=== PATIENT | female | born 1955 | race Caucasian/White ===

== ENCOUNTER 2019-01-02 14:40 | Observation (INO) ==
[2019-01-02 15:27] LABS: Hemoglobin 7.4 g/dL (11.5-15.4); Nucleated Red Blood Cells 0.4 /100 WBC (0); Platelet Count 487 K/mcL (140-400)
[2019-01-02 15:28] LABS: Basophils % 0.2 %; Eosinophils # 0.6 K/mcL (0.0-0.6); Eosinophils % 4.3 %; Hematocrit 27.6 % (35.3-44.9); Immature Granulocytes % 1.2 % (0-4); Lymphocytes # 1.3 K/mcL (0.6-4.6); Lymphocytes % 9.8 %; Mean Corpuscular HGB Conc 26.8 g/dL (31.6-35.5); Mean Corpuscular Hemoglobin 23.1 pg (28.0-33.3); Mean Platelet Volume 9.2 fL (9.4-12.4); Monocytes # 0.9 K/mcL (0.0-1.3); Monocytes % 6.7 %; Neutrophils # 10.6 K/mcL (1.6-8.9); Red Blood Count 3.21 M/mcL (3.82-4.97); Red Cell Distribution Width 21.2 % (11.5-14.5); Segmented Neutrophils % 77.8 %; White Blood Count 13.6 K/mcL (4.3-11.1)
--- NOTE | 2019-01-02 15:46 | Emergency Department Note ---
Disposition Clinical Impression: Anemia Qualifiers: Anemia type: unspecified type Qualified Code(s): D64.9 - Anemia, unspecified Disposition: Admitted As Inpatient Condition: Fair Time of Disposition: 16:43 General Adult HPI - General Chief complaint: ED Recheck/Abnormal Lab/Rx Stated complaint: "low hgb" Time Seen by Provider: 01/02/19 15:04 Source: patient Limitations: no limitations Nursing Notes Reviewed: Yes Vital Signs Reviewed: Yes - History of Present Illness HPI Narrative: Female patient sent to the emergency department complaining of low hemoglobin. Does have a history of iron deficiency anemia. Is a diabetic with nonhealing wounds to the lower extremities. Did have a debridement of her left foot on Monday approximately 5 days ago. Is on home antibiotics for this. States that she has been off her iron for around 6 weeks secondary to being told she could not take that with her antibiotics. She did start him back 10 days ago however is found to be anemic over the past week. Initial hemoglobin was 7.43 drawn today at primary care doctor's was 7.2. Patient has no complaints today other than a generalized weakness. She was noted to have some crackles in her left base by the primary care physician. Patient denies any fevers or shortness of breath. Pain Scale: 0 - Related Data Home Medications Medication Instructions Recorded Confirmed Aspirin [Lo-Dose Aspirin EC] 81 mg PO HS 01/02/19 01/02/19 Atorvastatin [Lipitor] 40 mg PO DAILY 01/02/19 01/02/19 Calcitriol [Rocaltrol] 0.25 mcg PO MOWEFR 01/02/19 01/02/19 Cholecalciferol (D-3) [Vitamin D] 1,000 unit PO BID 01/02/19 01/02/19 Delafloxacin Meglumine [Baxdela] 300 mg IV Q12H 01/02/19 01/02/19 Dorzolamide/Timolol/Pf 1 drop BOTH EYES BID 01/02/19 01/02/19 [Dorzolamide-Timolol 2%-0.5%] Ferrous Sulfate [Iron] 325 mg PO BIDWM 01/02/19 01/02/19 Furosemide [Lasix] 40 mg PO DAILY 01/02/19 01/02/19 Insulin Regular U-500 [HumuLIN R 50 - 60 unit SQ HS 01/02/19 01/02/19 U-500] Insulin Regular U-500 [HumuLIN R 150 unit SQ QAM 01/02/19 01/02/19 U-500] Liraglutide [Victoza 3-William] 0.6 mg SQ DAILY 01/02/19 01/02/19 Lisinopril [Zestril] 10 mg PO DAILY 01/02/19 01/02/19 Loratadine [Claritin] 10 mg PO DAILY 01/02/19 01/02/19 Magnesium Oxide [Magnesium] 400 mg PO BID 01/02/19 01/02/19 Metoprolol [Lopressor] 25 mg PO BID 01/02/19 01/02/19 Multivitamin [Daily Multiple 1 each PO DAILY 01/02/19 01/02/19 Vitamin] Travoprost [Travatan Z] 1 drop BOTH EYES HS 01/02/19 01/02/19 Allergies Allergy/AdvReac Type Severity Reaction Status Date / Time latanoprost Allergy See Verified 01/02/19 14:46 Comments Sulfa (Sulfonamide Allergy Hives Verified 08/24/16 13:38 Antibiotics) All systems ED: reviewed and negative except as stated. Review of Systems: As Per HPI Constitutional: Denies: fever, chills Cardiovascular: Denies: chest pain, syncope Respiratory: Denies: cough, dyspnea Gastrointestinal: Denies: abdominal pain, nausea, vomiting, diarrhea Genitourinary: Denies: urgency, dysuria, frequency Musculoskeletal: Denies: back pain, neck pain Integumentary: Reports: other (Nonhealing wounds to bilateral feet.) Neurological: Reports: weakness. Denies: headache Past Medical History - Past Medical History Attestation: Yes The following information was validated with the patient. Source: patient Medical history: Reports: diabetes, glaucoma, hypertension - Social History Smoking Status: Never smoker Smokeless Tobacco Status: No Alcohol use: Reports: rarely Drug use: Reports: none Physical Exam - General Limitations: no limitations General appearance: alert, in no apparent distress - Head Head exam: atraumatic, normocephalic, normal inspection - Eye Eye exam: Present: normal appearance, PERRL, EOMI - ENT ENT exam: normal exam, normal oropharynx, mucous membranes moist - Neck Neck exam: Present: normal inspection, full ROM, trachea midline - Chest Chest inspection: Present: normal inspection, symmetric chest wall rise - Respiratory Respiratory exam: Present: normal lung sounds bilaterally. Absent: respiratory distress, accessory muscle use - Cardiovascular Cardiovascular exam: Present: regular rate, normal rhythm, normal heart sounds - Abdominal Exam Abdominal exam: Present: soft, Non-Tender. Absent: tenderness, distention, guarding, rebound, rigidity, organomegaly - Extremities Exam Extremities exam: Present: normal inspection, full ROM, other (Patient with all digits imitated on bilateral lower extremities. Multiple wounds that are open to lower feet. These are bandaged. We did take the dressings down they were noted to have vancomycin beads in the left foot. They do appear to be healing well however they are ulcerated. They do appear beefy red. No necrosis noted. No foul odor.). Absent: tenderness - Neurological Exam Neurological exam: Present: alert, oriented X3 - Psychiatric Psychiatric exam: Present: normal affect, normal mood - Skin Skin exam: Present: warm, dry, normal color. Absent: rash, cyanosis, diaphoresis Course Course Narrative: Patient is a diabetic. Does have lower extremity wounds to both feet. She appears well but does have a lower hemoglobin. I discussed this with the patient's primary care physician who is requesting admission for blood transfusion at this time. We will provide her with 1 unit at this time and have her reevaluated when she gets to the floor. Does have a history of iron deficiency anemia. Patient has no other complaints currently. She does only complain of weakness. She is nontoxic appearing. Chest x-ray was ordered secondary to when I was discussing with PCP they were concerned for possible crackles in her left lower base. I did not appreciate this however patient mentioned it as well. Chest x-ray shows no signs of pneumonia. Vital Signs Temperature 97.8 F 01/02/19 14:43 Pulse Rate 79 01/02/19 14:43 Respiratory Rate 18 01/02/19 14:43 Blood Pressure 138/69 01/02/19 14:43 O2 Sat by Pulse Oximetry 97 01/02/19 14:43 Temperature 98.5 F 01/02/19 18:55 Pulse Rate 84 01/02/19 18:55 Respiratory Rate 16 01/02/19 18:55 Blood Pressure 128/72 01/02/19 18:55 O2 Sat by Pulse Oximetry 98 01/02/19 18:55 Oxygen Delivery Oxygen Delivery Room Air Medical Decision Making - Medical Records Medical records reviewed: Yes I reviewed the patient's medical records. - Lab Data Lab results reviewed: Yes I reviewed the patient's lab results. Result diagrams: 01/02/19 15:18 01/02/19 15:18 Lab Results 01/02/19 01/02/19 01/02/19 Range/Units 15:18 15:18 15:18 WBC 13.6 H (4.3-11.1) K/mcL RBC 3.21 L (3.82-4.97) M/mcL Hgb 7.4 L (11.5-15.4) g/dL Hct 27.6 L (35.3-44.9) % MCV 86.0 (83.0-100.0) fL MCH 23.1 L (28.0-33.3) pg MCHC 26.8 L (31.6-35.5) g/dL RDW 21.2 H (11.5-14.5) % Plt Count 487 H (140-400) K/mcL MPV 9.2 L (9.4-12.4) fL Immature Gran % 1.2 (0-4) % Seg Neutrophils % 77.8 % Lymphocytes % 9.8 % Monocytes % 6.7 % Eosinophils % 4.3 % Basophils % 0.2 % Neutrophils # 10.6 H (1.6-8.9) K/mcL Lymphocytes # 1.3 (0.6-4.6) K/mcL Monocytes # 0.9 (0.0-1.3) K/mcL Eosinophils # 0.6 (0.0-0.6) K/mcL Basophils # 0.0 (0.0-0.2) K/mcL Nucleated RBCs/100 WBC 0.4 H (0) /100 WBC Platelet Estimate Increased H (Normal) Hypochromasia Present A (Not Present) Anisocytosis 2+ A (Not Present) PT (9.4-12.1) Seconds INR Sodium 140 (136-145) mEq/L Potassium 4.3 (3.5-5.1) mEq/L Chloride 104 (98-107) mEq/L Carbon Dioxide 28 (23-29) mEq/L BUN 31 H (8-23) mg/dL Creatinine 1.08 (0.60-1.20) mg/dL Est GFR ( Amer) > 60 (> 60) Est GFR (Non-Af Amer) 51 L (> 60) BUN/Creatinine Ratio 29 H (6-26) Glucose 69 L (70-105) mg/dL POC Glucose (70-99) mg/dL Calculated Osmolality 295 (280-300) Calcium 9.1 (8.6-10.3) mg/dL Iron 15 L (50-170) mcg/dL % Saturation 6 L (15-50) % Transferrin 194 L (203-362) mg/dL Blood Type A POSITIVE Antibody Screen NEGATIVE Crossmatch See Detail 01/02/19 01/02/19 Range/Units 16:46 16:54 WBC (4.3-11.1) K/mcL RBC (3.82-4.97) M/mcL Hgb (11.5-15.4) g/dL Hct (35.3-44.9) % MCV (83.0-100.0) fL MCH (28.0-33.3) pg MCHC (31.6-35.5) g/dL RDW (11.5-14.5) % Plt Count (140-400) K/mcL MPV (9.4-12.4) fL Immature Gran % (0-4) % Seg Neutrophils % % Lymphocytes % % Monocytes % % Eosinophils % % Basophils % % Neutrophils # (1.6-8.9) K/mcL Lymphocytes # (0.6-4.6) K/mcL Monocytes # (0.0-1.3) K/mcL Eosinophils # (0.0-0.6) K/mcL Basophils # (0.0-0.2) K/mcL Nucleated RBCs/100 WBC (0) /100 WBC Platelet Estimate (Normal) Hypochromasia (Not Present) Anisocytosis (Not Present) PT 13.6 H (9.4-12.1) Seconds INR 1.2 Sodium (136-145) mEq/L Potassium (3.5-5.1) mEq/L Chloride (98-107) mEq/L Carbon Dioxide (23-29) mEq/L BUN (8-23) mg/dL Creatinine (0.60-1.20) mg/dL Est GFR ( Amer) (> 60) Est GFR (Non-Af Amer) (> 60) BUN/Creatinine Ratio (6-26) Glucose (70-105) mg/dL POC Glucose 105 H (70-99) mg/dL Calculated Osmolality (280-300) Calcium (8.6-10.3) mg/dL Iron (50-170) mcg/dL % Saturation (15-50) % Transferrin (203-362) mg/dL Blood Type Antibody Screen Crossmatch - Radiology Data Radiology results reviewed: Yes I reviewed the patient's radiology results. Chest X-Ray 01/02/19 16:12 IMPRESSION: No acute cardiopulmonary process. D/ / Osmany Mcrae MD / Osmany Mcrae MD Interpreting Provider: Osmany Mcrae MD Attestation Statement - Attestation Attestation: I, Adam Loja, examined this patient and my medical decision-making was reviewed with the BALLISTICS PROFESSOR/PA/Advanced Practice Nurse/Resident Physician. I agree with the documented findings, disposition and treatment plan as described except to the extent set forth below. 63-year-old female presents emergency Department with concerns of low hemoglobin. She had outpatient laboratory testing was showed a hemoglobin of 7.4. She has a history of anemia of chronic disease and iron deficiency anemia. She had stopped taking her iron within the past month secondary to pharmacist recommendation that was interfering with her antibiotics but did recently start taking it again over the past week. She takes daily antibiotics at home for bilateral foot infections. She is status post transmetatarsal and mentation the bilateral foot. Despite hemoglobin of 7.4 she is awake alert and answering questions appropriately at this not describe significant limitation. Patient states she has regular bowel movements and has not seen significant changes or melena or hematochezia. We spoke with the primary care provider who recommended admission to the hospital for further evaluation of her anemia and bilateral foot infections.
[2019-01-02 15:55] LABS: Anisocytosis 2+ (Not Present); BUN/Creatinine Ratio 29 (6-26); Blood Urea Nitrogen 31 mg/dL (8-23); Calcium 9.1 mg/dL (8.6-10.3); Carbon Dioxide 28 mEq/L (23-29); Chloride 104 mEq/L (98-107); Glucose 69 mg/dL (70-105); Hypochromasia Present (Not Present); Osmolality,Calculated 295 (280-300); Platelet Estimate Increased (Normal); Potassium 4.3 mEq/L (3.5-5.1); Sodium 140 mEq/L (136-145); eGFR For African Americans > 60 (> 60); eGFR For Non-African Americans 51 (> 60)
[2019-01-02 17:10] LABS: % Iron Saturation 6 % (15-50); Iron 15 mcg/dL (50-170); Transferrin 194 mg/dL (203-362)
[2019-01-02] MEDS ORDERED: 0.9 % Sodium Chloride 250 ML ONE (17:15)
[2019-01-02 17:18] LABS: INR 1.2; Prothrombin Time 13.6 Seconds (9.4-12.1)
[2019-01-02] MEDS ORDERED: Ondansetron 4 MG/2 ML VIAL IVP PRN (17:22)
[2019-01-02] MEDS ORDERED: Naloxone 0.4 MG/ML INJ IVP PRN (17:22)
[2019-01-02] MEDS ORDERED: Ferumoxytol 510 MG in 0.9 % Sodium Chloride 100 ML IVPB ONE (17:32)
--- NOTE | 2019-01-02 17:32 | Internal Med History&Physical ---
Date of Encounter: 01/02/19 Time of Encounter: 17:00 Internal Medicine - H&P: HPI Chief complaint: Low hemoglobin Admitted From: Home History of present illness: Ms. Rocha is a 63 year old female with history of diabetes, morbid obesity, recent admission at [facility] for bilateral feet OM s/p transmetatarsal amputation and currently on IV Baxdela as outpatient who presented from the PCP office due to low Hb. Denies any melena, hematochezia, bright red blood per rectum, hematemesis, hematuria, or hemoptysis. She was admitted at [place] from 12/24-, she was told that her Hb was 7.9 at that time. After she was discharged, she underwent transmetatarsal amputation on 12/28 as an outpatient. She has since then placed on IV Baxdela and had bloodwork done on 12/31 with Hb 7.4. It was repeated today and was 7.2 therefore she was advised by her PCP to be admitted for anemia. Upon recheck in the ED, it was again 7.4. Denies chest pain, shortness of breath, palpitation, lightheadedness, orthopnea, or PND. No fever/chills, nausea/vomiting, abdominal pain, or dysuria. In the ED, she was afebrile and hemodynamically stable. Other than hemoglobin of 7.4, she had leukocytosis of 13.6. She was started on 1 unit PRBC transfusion and admitted for further management. Past Med Surg Social Fam HX - Past Medical History Medical history: diabetes, glaucoma, hypertension - Past Surgical History Additional surgical history: bilat toe amputation - Social History Smoking Status: Never smoker Smokeless Tobacco Status: No Alcohol use: rarely Drug use: none - Additional Family History Additional family history: No family history of GI malignancy Internal Medicine - H&P: Meds Aspirin [Lo-Dose Aspirin EC] 81 mg PO HS 01/02/19 [History] Atorvastatin [Lipitor] 40 mg PO DAILY 01/02/19 [History] Calcitriol [Rocaltrol] 0.25 mcg PO MOWEFR 01/02/19 [History] Cholecalciferol (D-3) [Vitamin D] 1,000 unit PO BID 01/02/19 [History] Delafloxacin Meglumine [Baxdela] 300 mg IV Q12H 01/02/19 [History] Dorzolamide/Timolol/Pf [Dorzolamide-Timolol 2%-0.5%] 1 drop BOTH EYES BID 01/02/19 [History] Ferrous Sulfate [Iron] 325 mg PO BIDWM 01/02/19 [History] Furosemide [Lasix] 40 mg PO DAILY 01/02/19 [History] Insulin Regular U-500 [HumuLIN R U-500] 10 - 12 unit SQ HS 01/02/19 [History] Insulin Regular U-500 [HumuLIN R U-500] 30 unit SQ QAM 01/02/19 [History] Liraglutide [Victoza 3-William] 0.6 mg SQ DAILY 01/02/19 [History] Lisinopril [Zestril] 10 mg PO DAILY 01/02/19 [History] Loratadine [Claritin] 10 mg PO DAILY 01/02/19 [History] Magnesium Oxide [Magnesium] 400 mg PO BID 01/02/19 [History] Metoprolol [Lopressor] 25 mg PO BID 01/02/19 [History] Multivitamin [Daily Multiple Vitamin] 1 each PO DAILY 01/02/19 [History] Travoprost [Travatan Z] 1 drop BOTH EYES HS 01/02/19 [History] Allergy/AdvReac Type Severity Reaction Status Date / Time latanoprost Allergy See Verified 01/02/19 14:46 Comments Sulfa (Sulfonamide Allergy Hives Verified 08/24/16 13:38 Antibiotics) All Systems PM: A 10-system review of systems was performed and is negative for pertinent findings except as documented above in the HPI. - Constitutional Vitals: Temp Pulse Resp BP Pulse Ox 98.2 F 82 20 157/72 98 01/02/19 17:17 01/02/19 17:26 01/02/19 17:26 01/02/19 17:26 01/02/19 17:26 Exam: General: Alert and oriented, not in acute distress. HEENT:EOMI, pupils equal, round and reactive. Cardiovascular:Normal S1 & S2, No JVD. Pulse regular. Lungs: clear to auscultation, no wheezes/rales Abdomen:Soft, non-tender, no rigidity. Declines VENICE Extremities: s/p bilateral transmetatarsal amputation. Dressing c/d/i Neurological:Normal cognition and motor skills. Non-focal Skin:Normal color, no rash, no lesions. Pulses:Carotid and radial pulses normal +2. Rest of the physical exam is non contributory Internal Med - H&P Results - Labs CBC & Chem 7: 01/02/19 15:18 01/02/19 15:18 Labs: Short CBC 01/02/19 Range/Units 15:18 WBC 13.6 H (4.3-11.1) K/mcL Hgb 7.4 L (11.5-15.4) g/dL Hct 27.6 L (35.3-44.9) % Plt Count 487 H (140-400) K/mcL Neutrophils # 10.6 H (1.6-8.9) K/mcL BMP 01/02/19 15:18 Sodium 140 Potassium 4.3 Chloride 104 Carbon Dioxide 28 BUN 31 H Creatinine 1.08 Glucose 69 L Calcium 9.1 - Impressions ITS Impressions Chest X-Ray 01/02/19 16:12 IMPRESSION: No acute cardiopulmonary process. D/ / Osmany Mcrae MD / Osmany Mcrae MD Interpreting Provider: Osmany Mcrae MD - Assessment and Plan (1) Anemia Current Visit: Yes Status: Acute Assessment and plan: Presented with hemoglobin of 7.2 at the outpatient lab, repeat was 7.4 in the ED it was also 7.4 on 12/31 and reportedly 7.9 at the OSH last week (pre-op) Pattern is not consistent with acute GI bleed, pt does not have any signs and symptoms of bleeding suspect anemia of chronic disease with bilateral OM of the feet requiring transmetatarsal amputation +/- post-op blood loss anemia nevertheless, 1U pRBC started in the ED. REpeat H&H after will check FOBT to ensure check iron profile -> if low, will give IV iron Qualifiers: Anemia type: unspecified type Qualified Code(s): D64.9 - Anemia, unspecified (2) Status post transmetatarsal amputation of foot Current Visit: Yes Status: Chronic Assessment and plan: Recent bilateral transmetatarsal amputation on 12/28, presumably due to OM as she is still on IV Baxdela continue home abx Qualifiers: Laterality: unspecified laterality Qualified Code(s): Z89.439 - Acquired absence of unspecified foot (3) Diabetes Current Visit: Yes Status: Chronic Assessment and plan: she absolutely refuses to use any form of insulin other than her home U500. 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
[2019-01-02] MEDS ORDERED: [UNRECOGNIZED DRUG - OTHER] IV SCH (17:45)
[2019-01-02] MEDS ORDERED: Aspirin Enteric Coated 81 MG Tablet PO SCH (21:00)
[2019-01-02] MEDS ORDERED: Dorzolamide/Timolol 1 DROP BOTH EYES SCH (21:00)
[2019-01-02] MEDS ORDERED: Travoprost [Travatan Z] 1 DROP OP SCH (21:00)
[2019-01-02] MEDS ORDERED: *HR* Insulin Regular U-500 500 UNIT/ML SQ SCH ×2 (21:00)
[2019-01-02] MEDS: Cefepime HCl 2,000 MG in Water for inj. (sterile) 20 ML 20 ML IVP SCH (21:47)
[2019-01-02] MEDS: Magnesium Oxide 400 MG TABLET PO SCH (21:50)
[2019-01-02] MEDS: Dorzolamide/Timolol OPTH 10 ML BOTTLE BOTH EYES SCH (23:16)
[2019-01-03 01:17] LABS: Hematocrit 26.4 % (35.3-44.9); Hemoglobin 7.4 g/dL (11.5-15.4)
[2019-01-03 01:34] LABS: BUN/Creatinine Ratio 29 (6-26); Blood Urea Nitrogen 29 mg/dL (8-23); Calcium 8.6 mg/dL (8.6-10.3); Carbon Dioxide 25 mEq/L (23-29); Chloride 104 mEq/L (98-107); Glucose 154 mg/dL (70-105); Osmolality,Calculated 293 (280-300); Potassium 4.8 mEq/L (3.5-5.1); Sodium 137 mEq/L (136-145); eGFR For African Americans > 60 (> 60); eGFR For Non-African Americans 56 (> 60)
[2019-01-03] MEDS ORDERED: *HR* Dextrose 50 % in Water (Syg) 50 ML SYRINGE IVP PRN (05:43)
[2019-01-03] MEDS ORDERED: D5% in Water 1,000 ML IVC PRN (05:43)
[2019-01-03] MEDS ORDERED: Dextrose Gel 15 GM/37.5 ML TUBE PO PRN ×2 (05:43)
[2019-01-03 05:50] LABS: Basophils % 0.3 %; Immature Granulocytes % 0.9 % (0-4)
[2019-01-03 05:51] LABS: Eosinophils # 0.6 K/mcL (0.0-0.6); Eosinophils % 4.9 %; Hematocrit 25.4 % (35.3-44.9); Hemoglobin 7.1 g/dL (11.5-15.4); Lymphocytes # 1.7 K/mcL (0.6-4.6); Lymphocytes % 14.2 %; Mean Corpuscular Hemoglobin 24.2 pg (28.0-33.3); Mean Corpuscular Volume 86.7 fL (83.0-100.0); Mean Platelet Volume 9.3 fL (9.4-12.4); Monocytes # 0.8 K/mcL (0.0-1.3); Neutrophils # 8.6 K/mcL (1.6-8.9); Nucleated Red Blood Cells 0.2 /100 WBC (0); Platelet Count 375 K/mcL (140-400); Red Blood Count 2.93 M/mcL (3.82-4.97); Red Cell Distribution Width 20.3 % (11.5-14.5); Segmented Neutrophils % 72.7 %; White Blood Count 11.8 K/mcL (4.3-11.1)
[2019-01-03 06:10] LABS: Anisocytosis 2+ (Not Present); Hypochromasia Present (Not Present); Macrocytosis Present (Not Present); Microcytosis Present (Not Present); Poikilocytosis 1+ (Not Present); Stomatocytes 1+ (Not Present)
[2019-01-03 06:11] LABS: Platelet Estimate Normal (Normal)
[2019-01-03] MEDS ORDERED: Furosemide 40 MG TABLET PO SCH (09:00)
[2019-01-03] MEDS ORDERED: *HR* Insulin Regular U-500 500 UNIT/ML SQ SCH (09:00)
[2019-01-03] MEDS ORDERED: Loratadine 10 MG TABLET PO SCH (09:00)
[2019-01-03] MEDS: Dorzolamide/Timolol OPTH 10 ML BOTTLE BOTH EYES SCH (09:16)
[2019-01-03] MEDS: Magnesium Oxide 400 MG TABLET PO SCH (09:19)
[2019-01-03] MEDS: Cefepime HCl 2,000 MG in Water for inj. (sterile) 20 ML 20 ML IVP SCH (09:20)
--- NOTE | 2019-01-03 10:07 | Discharge Summary ---
- NOTES TO OUTPATIENT PROVIDER Notes to Outpatient Provider: Follow-up with hematology for IV iron infusion. She may also need PRN transfusion. 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 bilateral feet OM Orders not resulted at time of discharge: Pending orders 01/02/19 15:18 Red Blood Cells [BBK] Stat Type and Screen [BBK] Stat 01/03/19 14:00 Hemoglobin and Hematocrit [HEME] Routine Date of Encounter: 01/03/19 Time of Encounter: 07:45 - Discharge Diagnosis (1) Anemia Priority: Primary Status: Acute Qualifiers: Anemia type: unspecified type Qualified Code(s): D64.9 - Anemia, unspecified (2) Status post transmetatarsal amputation of foot Priority: Secondary Status: Chronic Qualifiers: Laterality: unspecified laterality Qualified Code(s): Z89.439 - Acquired absence of unspecified foot (3) Diabetes Priority: Secondary Status: Chronic Qualifiers: Diabetes mellitus type: type 2 Diabetes mellitus roasterman insulin use: with roasterman use Diabetes mellitus complication status: with other specified complication Qualified Code(s): E11.69 - Type 2 diabetes mellitus with other specified complication; 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 Rocha is a 63 year old female with history of diabetes, morbid obesity, recent admission at [facility] for bilateral feet OM s/p transmetatarsal amputation on 12/28 and currently on IV Baxdela, who was admitted from the ED due to concern for worsening anemia. Presented with Hb 7.2 at the outpatient lab -> 7.4 in the ED. however, upon reviewing the record from [facility] on 12/24- , it appears that she had been in the range of 7s even prior to the op. Denies any signs and symptoms of GI bleed and it was confirmed on negative FOBT. Iron profile also showed Fe 15 with 6% saturation -> anemia likely due to BENITEZ as well as anemia of chronic disease. She was transfused a total of 3 units PRBC prior to discharge and was also given IV iron infusion. She will benefit from hematology follow-up as an outpatient for IV iron and PRN transfusion. Follow with crab meat processor while continuing on IV Baxdela. Discharge discussed with: patient, nurse - Time Spent with Patient Total time spent providing and/or coordinating discharge services: 26 mins - Discharge Medications Prescriptions: Continued Insulin Regular U-500 [HumuLIN R U-500] 150 unit SQ QAM Insulin Regular U-500 [HumuLIN R U-500] 50 - 60 unit SQ HS Atorvastatin [Lipitor] 40 mg PO DAILY Calcitriol [Rocaltrol] 0.25 mcg PO MOWEFR Dorzolamide/Timolol/Pf [Dorzolamide-Timolol 2%-0.5%] 1 drop BOTH EYES BID Furosemide [Lasix] 40 mg PO DAILY Liraglutide [Victoza 3-William] 0.6 mg SQ DAILY Lisinopril [Zestril] 10 mg PO DAILY Magnesium Oxide [Magnesium] 400 mg PO BID Metoprolol [Lopressor] 25 mg PO BID Travoprost [Travatan Z] 1 drop BOTH EYES HS Loratadine [Claritin] 10 mg PO DAILY Aspirin [Lo-Dose Aspirin EC] 81 mg PO HS Multivitamin [Daily Multiple Vitamin] 1 each PO DAILY Ferrous Sulfate [Iron] 325 mg PO BIDWM Cholecalciferol (D-3) [Vitamin D] 1,000 unit PO BID Delafloxacin Meglumine [Baxdela] 300 mg IV Q12H Home Medications: Aspirin [Lo-Dose Aspirin EC] 81 mg PO HS 01/02/19 [History] Atorvastatin [Lipitor] 40 mg PO DAILY 01/02/19 [History] Calcitriol [Rocaltrol] 0.25 mcg PO MOWEFR 01/02/19 [History] Cholecalciferol (D-3) [Vitamin D] 1,000 unit PO BID 01/02/19 [History] Delafloxacin Meglumine [Baxdela] 300 mg IV Q12H 01/02/19 [History] Dorzolamide/Timolol/Pf [Dorzolamide-Timolol 2%-0.5%] 1 drop BOTH EYES BID 01/02/19 [History] Ferrous Sulfate [Iron] 325 mg PO BIDWM 01/02/19 [History] Furosemide [Lasix] 40 mg PO DAILY 01/02/19 [History] Insulin Regular U-500 [HumuLIN R U-500] 50 - 60 unit SQ HS 01/02/19 [History] Insulin Regular U-500 [HumuLIN R U-500] 150 unit SQ QAM 01/02/19 [History] Liraglutide [Victoza 3-William] 0.6 mg SQ DAILY 01/02/19 [History] Lisinopril [Zestril] 10 mg PO DAILY 01/02/19 [History] Loratadine [Claritin] 10 mg PO DAILY 01/02/19 [History] Magnesium Oxide [Magnesium] 400 mg PO BID 01/02/19 [History] Metoprolol [Lopressor] 25 mg PO BID 01/02/19 [History] Multivitamin [Daily Multiple Vitamin] 1 each PO DAILY 01/02/19 [History] Travoprost [Travatan Z] 1 drop BOTH EYES HS 01/02/19 [History] Allergies/Adverse Reactions: Allergy/AdvReac Type Severity Reaction Status Date / Time latanoprost Allergy See Verified 01/02/19 14:46 Comments Sulfa (Sulfonamide Allergy Hives Verified 08/24/16 13:38 Antibiotics) Date of admission: 01/02/19 17:27 Primary care physician: Yaquelin Clark DO - Constitutional Vitals: Temp Pulse Resp BP Pulse Ox 98.6 F 77 16 136/58 93 01/03/19 07:30 01/03/19 07:30 01/03/19 07:30 01/03/19 07:30 01/03/19 07:30 Exam: General: Alert and oriented, not in acute distress. Cardiovascular:Normal S1 & S2, No JVD. Pulse regular. Lungs: clear to auscultation, no wheezes/rales Abdomen:Soft, non-tender, no rigidity. Declines VENICE Extremities: s/p bilateral transmetatarsal amputation. Dressing c/d/i Neurological:Normal cognition and motor skills. Non-focal - Patient Status Disposition: Home, Self-Care Condition: Fair Overall status at discharge: patient is progressing back to baseline - Discharge Instructions Instructions: Anemia (GEN), Diabetes Mellitus Type 2 in Adults (DC), Chronic Hypertension (DC) Follow Up With: Yaquelin Clark DO [Primary Care Provider] - Angel Horn MD [Partnered Physician] - - Diet and Activity Activity: resume usual activities as tolerated Diet: diabetic diet
[2019-01-03] MEDS ORDERED: 0.9 % Sodium Chloride 250 ML ONE ×2 (10:45→14:36)
[2019-01-03 15:11] VITALS: BP 158/80
--- NOTE | 2019-01-03 15:28 | Physician Discharge Referral ---
Home Health/Hosp Referral Info Transfer to: Home Health Provider in Charge Post Discharge: PCP - Diagnosis (1) Anemia Priority: Primary Status: Acute (2) Status post transmetatarsal amputation of foot Priority: Secondary Status: Chronic (3) Diabetes Priority: Secondary Status: Chronic (4) HTN (hypertension) Priority: Secondary Status: Chronic (5) DVT prophylaxis Priority: Secondary Status: Acute (6) Morbid obesity with BMI of 50.0-59.9, adult Priority: Secondary Status: Acute - Respiratory Orders Smoking Cessation: Smoking cessation has been advised. For more information, call the [place] Tobacco Quit Line at 1-486-ZNYP-NOW. - Services Needed Following services are medically necessary services: Nursing (For IV Baxdela) - Transfer Medications Home Medications: Aspirin [Lo-Dose Aspirin EC] 81 mg PO HS 01/02/19 [History] Atorvastatin [Lipitor] 40 mg PO DAILY 01/02/19 [History] Calcitriol [Rocaltrol] 0.25 mcg PO MOWEFR 01/02/19 [History] Cholecalciferol (D-3) [Vitamin D] 1,000 unit PO BID 01/02/19 [History] Delafloxacin Meglumine [Baxdela] 300 mg IV Q12H 01/02/19 [History] Dorzolamide/Timolol/Pf [Dorzolamide-Timolol 2%-0.5%] 1 drop BOTH EYES BID 01/02/19 [History] Ferrous Sulfate [Iron] 325 mg PO BIDWM 01/02/19 [History] Furosemide [Lasix] 40 mg PO DAILY 01/02/19 [History] Insulin Regular U-500 [HumuLIN R U-500] 50 - 60 unit SQ HS 01/02/19 [History] Insulin Regular U-500 [HumuLIN R U-500] 150 unit SQ QA 01/02/19 [History] Liraglutide [Victoza 3-William] 0.6 mg SQ DAILY 01/02/19 [History] Lisinopril [Zestril] 10 mg PO DAILY 01/02/19 [History] Loratadine [Claritin] 10 mg PO DAILY 01/02/19 [History] Magnesium Oxide [Magnesium] 400 mg PO BID 01/02/19 [History] Metoprolol [Lopressor] 25 mg PO BID 01/02/19 [History] Multivitamin [Daily Multiple Vitamin] 1 each PO DAILY 01/02/19 [History] Travoprost [Travatan Z] 1 drop BOTH EYES HS 01/02/19 [History] cloNIDine HCl [CloNIDine HCl] 0.1 mg PO HS 01/03/19 [History] Allergies/Adverse Reactions: Allergy/AdvReac Type Severity Reaction Status Date / Time latanoprost Allergy See Verified 01/02/19 14:46 Comments Sulfa (Sulfonamide Allergy Hives Verified 08/24/16 13:38 Antibiotics) Certification: Further, I certify that my clinical findings support that this patient is homebound (i.e. absences from home require considerable and taxing effort and are for medical reasons or yazidi services or infrequently or short duration when for other reasons) because: Homebound Reason: Patient requires assistance of a person or device to safely leave home Attestation: My signature below is to certify that this patient is under my care and that I, or nurse practitioner, or a physician's inventory control assistant working with me, has a [id number] encounter with this patient.
== END 2019-01-03 18:53 | disposition home or self-care (01) ==
LOC: 3ANU 14:40 → EMEROOARM 14:40 → SUATTDRO 17:27 → 3ANU 18:28
PROVIDERS: ADMIT Internal Medicine Nephrology; ATTEND Internal Medicine